=== PATIENT | male | born 1995 | race Caucasian/White ===

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

== ENCOUNTER 2017-08-04 11:26 | Emergency (ER) | payer OTHER ==
[2017-08-04 12:06] VITALS: BP 114/77
--- NOTE | 2017-08-04 12:44 | RAD ---
HISTORY: Pain between fourth and fifth digits, subacute trauma COMPARISONS: March 04, 2012 VIEWS: 4, Frontal, lateral, and oblique views of the right hand FINDINGS: BONE DENSITY: Normal. BONES: There is no displaced fracture. JOINTS: There is no arthropathy. ALIGNMENT: There is no dislocation. SOFT TISSUES: Unremarkable. OTHER FINDINGS: None. IMPRESSION: NO ACUTE OSSEOUS INJURY. IF SYMPTOMS PERSIST, RECOMMEND REPEAT IMAGING.
--- NOTE | 2017-08-04 12:54 | UC ---
Hand/Wrist HPI - HPI Summary HPI Summary: Pt presents to with complaint of discomfort base of ring finger on right hand as well as some discomfort base 5th. Pt was caught hand between 2 pieces of firewood 4-5 days and discomfort since. Pt denies parasthesia No open wounds. No ecchymosis No analgesia taken. Pain increases with flexion. Pt RHD Pt's medications reviewed this visit - History Of Current Complaint Chief Complaint: UCUpperExtremity Stated Complaint: RT HAND INJ Time Seen by Provider: 08/04/17 12:48 Hx Obtained From: Patient Onset/Duration: Gradual Onset, Lasting Days Severity Initially: Mild Pain Intensity: 2 Character Of Pain: Aching, Stiffness Aggravating Factor(s): Movement, Flexion Alleviating Factor(s): Nothing Associated Signs And Symptoms: Positive: Negative - Allergies/Home Medications Allergies/Adverse Reactions: Allergies Allergy/AdvReac Type Severity Reaction Status Date / Time No Known Allergies Allergy Verified 08/04/17 12:01 Home Medications: Home Medications NK [No Home Medications Reported] 08/04/17 [History Confirmed 08/04/17] PMH/Surg Hx/FS Hx/Imm Hx Previously Healthy: Yes - Surgical History Surgical History: None - Family History Known Family History: Positive: Diabetes - Social History Occupation: Employed Full-time Alcohol Use: Occasionally Substance Use Type: None Smoking Status (MU): Never Smoked Tobacco - Immunization History Most Recent Influenza Vaccination: 2015/2016 season, believes so Review of Systems Constitutional: Negative Skin: Other All Other Systems Reviewed And Are Negative: Yes Physical Exam Triage Information Reviewed: Yes Appearance: Well-Appearing, No Pain Distress, Well-Nourished Vital Signs: Initial Vital Signs Temp 98.8 F 08/04/17 12:02 Pulse 81 08/04/17 12:02 Resp 20 08/04/17 12:02 BP 114/77 08/04/17 12:02 Vital Signs Reviewed: Yes ENT: Positive: Hearing grossly normal Neck exam: Normal Neck: Positive: Supple Respiratory: Positive: No respiratory distress Cardiovascular: Positive: Other: - 2+ radial, 2+ ulnar CBT 2 sec Musculoskeletal: Positive: Other: - + thumb up, a ok finger spread + flex/ext mcp, dip, pip, 4th and 5th right hand Pain increases with extension of MCP in 4th no weakenss Neurological Exam: Normal Neurological: Positive: Alert, Other: - + gross sensation throughout Psychological Exam: Normal Diagnostics - Radiology No standard instances Radiology Interpretation Completed By: Radiologist - neg acute fx, dislocation Hand/Wrist Course/Dx - Course Course Of Treatment: Pt with discomfort base right 4th finger following a crush injury 4-5 days ago. Pt with goos CSM - mild discomfort base of 4th. Will check xray. declined analgesia. elina tape - Differential Dx/Diagnosis Provider Diagnoses: finger contusion Discharge - Discharge Plan Condition: Stable Disposition: HOME Patient Education Materials: Finger Sprain (ED) Referrals: [facility] [Outside] No Primary Care Phys,NOPCP [Primary Care Provider] - Additional Instructions: - alternate ibuprofen (Advil, Motrin) and tylenol every 3 hours for pain. Take with food. do NOT Take for more than 4-5 days - splint fingers together for rest and support as much as possible for the next 4-5 days - if you continue to have discomfort, you should schedule a follow-up appointment with your primary care provider. You have been given referral information for the physician referral center. If you do not have a primary care provider, this office can assist you in finding a new primary doctor
== END 2017-08-04 13:18 | disposition home or self-care (01) ==
LOC: UCCORT 11:26
DX: S60.041A Contusion of right ring finger without damage to nail, initial encounter (principal); S60.051A Contusion of right little finger without damage to nail, initial encounter; W23.0XXA Caught, crushed, jammed, or pinched between moving objects, initial encounter; Y93.9 Activity, unspecified; Y92.9 Unspecified place or not applicable
CPT/HCPCS: 99212; G0463